=== PATIENT | female | born 2000 | race Caucasian/White ===

== ENCOUNTER 2024-08-31 12:17 | Emergency (ER) | payer OTHER, SELFPAY ==
[2024-08-31 12:19] VITALS: BP 147/82
--- NOTE | 2024-08-31 13:50 | ED.GENMED ---
History of Present Illness
General
Chief Complaint: Withdrawal Symptoms
Source: patient and police
Exam Limitations: none
Time Seen by Provider: 08/31/24 12:39
Nursing documentation reviewed up to this point in time: agreed with
History of Present Illness
History of Present Illness:
The patient is a 24-year-old female brought in by police for medical clearance for incarceration. The patient reportedly has been homeless and admits to using fentanyl yesterday at 6 PM by snorting it. Patient does admit to IV drug use as well.
Police report that while they were in the car, she seemed to be dozing off, and they wanted her checked out. Patient denies trauma. She denies headache, chest pain or shortness of breath. Patient does report that she believes a needle broke in
her left elbow while she was injecting about 4 days ago. Patient denies any specific elbow pain or redness. Patient also has honey crusted wounds around her mouth.
Past History
Past History
ED Past Medical History: Other
ED Past Surgical History: None
Social History
Tobacco: Smoker
Alcohol: Occasional
Drug: IVDA
Personal: Single
Living: homeless
Employment: Not employed
Family History
Family History: Other
Review of Systems
Review of Systems
Allergies reviewed?: Yes
All Other Systems: ROS reviewed and negative except as documented in HPI and ROS
Constitutional: Reports fatigue
EENT: Reports no symptoms
Respiratory: Reports no symptoms
Cardiac: Reports no symptoms
ABD/GI: Reports no symptoms
: Reports no symptoms
Musculoskeletal: Reports no symptoms
Skin: Reports other
Neurological: Reports no symptoms
Endocrine: Reports no symptoms
Hematologic/Lymphatic: Reports no symptoms
Psychiatric: Reports no symptoms
Phy Exam
Physical Exam
Physical Exam:
Physical Exam
General: Patient appears disheveled and tired but easily arousable. Nontender scalp. No hematoma or scalp contusions
Neck: supple. no meningeal signs. normal psoterior pharynx. Nontender C-spine. No ecchymoses on neck, chest, abdomen or back
Heart: s1/s2 regular rate and rhythm, no murmur. equal radial pulses.
Lungs: no acute respiratory distress. clear bilaterally
Abdomen: Soft, nontender
Neuro: alert and oriented. no focal neurological deficits
Skin: Honey crusted lesions around mouth
Psychiatric: well kept. interactive and cooperative
Extremities: No edema. Track shea on bilateral antecubital areas. I cannot palpate any foreign body on patient's upper extremities. Able to fully extend and bend at elbows bilaterally. No elbow erythema or warmth.
Course
Orders/Labs/Results
Orders:
Orders
08/31/24 14:09
Elbow, Left [CR Elbow - Left Min 3 Views ] Urgent
Comment:
Reason For Exam: foreign body, history of IVDA
Vital Signs
Initial and Last Documented VS:
Initial Vital Signs
Temp Pulse Resp BP Pulse Ox
98.6 F 76 20 147/82 100
08/31/24 12:19 08/31/24 12:19 08/31/24 12:19 08/31/24 12:19 08/31/24 12:19
Last Documented Vital Signs
Temp Pulse Resp BP Pulse Ox
98.6 F 75 23 147/82 99
08/31/24 12:19 08/31/24 12:19 08/31/24 12:19 08/31/24 12:19 08/31/24 13:30
MDM/Problems Addressed
Differential Diagnosis Includes:
Foreign body left upper extremity. Opioid intoxication
MDM/Problems Addressed:
Patient presents with possible acute foreign body in left upper extremity and acute fatigue
Chronic conditions affecting care:
IV drug use
*Radiology
Radiology exam reviewed: preliminary read by ED provider (Foreign body seen in soft tissue of left elbow) and radiology read reviewed
*Pulse Oximetry
Patient hypoxic: no
*EKG
Interpreted by ED Provider?: NA
*Facer Operator Interpretation
Rate: Facer Operator- N/A
*Critical Care Note
Total Time (30-74mins, 75-104mins- exclusive of procedures): Not Applicable
Data Reviewed
Source: patient and other (Police)
Patient Management
Social determinants of health affecting care: Living situation (Patient will now be in custodial so can be watched for any left elbow redness or swelling)
Discussion with other providers: Other (Case discussed with Dr. Barnes as well as Dr. Cardona. Both feel that if left elbow does not appear infected and is not causing significant symptoms the patient, then the needle could be left in)
ED Attending Note
-
Portions of this chart may have been created with voice recognition software.� Occasional wrong word or��sound alike� substitutions may have occurred due to the inherent limitations of voice recognition software.
Discharge Plan
Departure
Patient Disposition: Home (Routine Discharge)
Date of Disposition: 08/31/24
Time of Disposition: 13:50
Patient with high blood pressure during this ER visit?: Yes
Condition: Good
Covid-19: Not Applicable
Discharge Problem:
Polysubstance abuse, Impetigo, Foreign body in skin of left forearm with infection
Instructions: Drug Misuse and Addiction (DC), Impetigo ED, Foreign Body in Skin ED, BLOOD PRESSURE
Prescriptions:
New
mupirocin 2 % ointment
1 applic topical TID 14 Days Qty: 22 0RF
Rx Instructions:
Apply the ointment 3 times a day to your facial infection until healed
Referrals:
Kali Flores MD [Primary Care Provider] -
Activity Restrictions/Additional Instructions:
Patient is medically cleared for incarceration. If patient's left elbow becomes warm or red, or she develops a fever, please bring her back to the emergency department.
Interventions
Interventions:
*Risk Screen - Suicide Last Done: 08/31/24 12:19
*General Assessment Last Done: 08/31/24 12:19
*Neglect/Abuse Screening Last Done: 08/31/24 12:19
*ED COVID-19 Vaccine History Last Done: 08/31/24 13:00
ED- Neurological Assessment Last Done: 08/31/24 13:00
ED-Psychological Assessment Last Done: 08/31/24 13:00
Discharge Date and Time
Print Language: CZECH
[2024-08-31 14:23] VITALS: BMI 23.8
== END 2024-08-31 16:10 | disposition home or self-care (01) ==
LOC: EMR 12:17
PROVIDERS: EMERGENCY PHYSICIAN Emergency Medicine; PRIMARYCARE PHYSICIAN Family Medicine
DX: F19.10 Other psychoactive substance abuse, uncomplicated (principal); L01.00 Impetigo, unspecified; M79.5 Residual foreign body in soft tissue; L08.9 Local infection of the skin and subcutaneous tissue, unspecified; F17.200 Nicotine dependence, unspecified, uncomplicated; Z59.00 Homelessness unspecified; Z65.3 Problems related to other legal circumstances; R03.0 Elevated blood-pressure reading, without diagnosis of hypertension
CPT/HCPCS: 99283; 73080